=== PATIENT | male | born 1985 | race Caucasian/White ===

== ENCOUNTER 2023-09-18 17:17 | Emergency (ER) | payer SELFPAY ==
[~2023-09-18] VITALS: Ht 185.4 cm; Wt 148.0 kg
[2023-09-18 17:23] VITALS: BP 156/102; RESP 20; TEMP 98.4; O2SAT 96
[2023-09-18 17:29] VITALS: PULSE 111
[2023-09-18] MEDS ORDERED: ACET-2708 MT (21:35)
[2023-09-18] MEDS ORDERED: TRIA15OI8 TP (21:35)
[2023-09-18] MEDS ORDERED: IBUP-1525 MT (21:35)
== END 2023-09-18 23:10 | disposition home or self-care (01) ==
LOC: ER 17:17
DX: M19.072 Primary osteoarthritis, left ankle and foot (principal); L30.9 Dermatitis, unspecified
CPT/HCPCS: 73552; 73560; 73590; 82962; 99284